=== PATIENT | male | born 1985 | race Two or more races ===

== ENCOUNTER 2025-03-29 19:56 | Emergency (ER) | payer OTHER, SELFPAY ==
[2025-03-29 19:59] VITALS: BMI 30.3
[2025-03-29 21:15] VITALS: BP 132/85; PULSE 91; RESP 18; TEMP 37.7; O2SAT 97
--- NOTE | 2025-03-29 22:03 | XR_ITS ---
Examination: Chest PA lateral 2 views Technique: PA lateral chest upright 2 views Date and time: March 29, 2025, 2206 hours INDICATION: Fever coughing beginning 4 days ago. FINDINGS: Normal heart size No lobar pneumonia. No pulmonary edema The osseous structures are intact IMPRESSION: No pneumonia identified
--- NOTE | 2025-03-29 22:08 | EDNOTE_ITS ---
Upper Respiratory Inf. RME/HPI General Chief Complaint: Flu Like Symptoms Stated Complaint: FEVER NAUSEA COUGH Time Seen by Provider: 03/29/25 21:47 Arrival date/time: 03/29/25 19:56 RME / HPI RME / HPI Narrative: 39-year-old male presents to the ED with a complaint of fever of 102 degrees, chills, cough with yellow sputum, runny nose, nasal congestion, mild sore throat, as well as nausea. He states his son was ill with similar symptoms. He has been ill for the past 5 days, states he was feeling a little better and then today it became worse. Related Data Previous Rx's ?Medication ?Instructions ?Recorded albuterol sulfate 90 mcg/actuation 2 puff inhalation Q 4H PRN 03/30/25 aerosol inhaler shortness of breath or wheez ing #8.5 grams azithromycin 250 mg tablet 250 mg PO QDAY 4 days #4 ta bs 03/30/25 prednisone 20 mg tablet 60 mg (3 x 20 mg) PO QDAY 4 days 03/30/25 #12 tabs Allergies Allergy/AdvReac Type Severity Reaction Status Date / Time No Known Allergies Allergy Verified 03/29/25 19:59 Review of Systems Review of Systems Systems Reviewed: All systems reviewed, normal except as documented Past Medical History Social History SMOKING STATUS: Never smoker ED Exam Narrative Physical exam: A&O, afebrile and non-toxic appearing, very pleasant 39-year-old male, no acute distress. Lung sounds are diminished at the bases with mild rhonchi bilaterally, RRR. TMs are without erythema, nares are very swollen. moves all extremities well. Course Course Course Narrative: COVID, influenza, rapid strep swabs obtained. Patient was given DuoNeb and Decadron. He feels a little better. XR chest reveals: No pneumonia identified per radiologist. Orders Category Date Time Status Bedside COVID-19 Antigen Test NOW Care 03/29/25 22:03 Active Bedside Influenza A&B Antigen Test NOW Care 03/29/25 22:03 Active XR chest 2V Stat Exams 03/29/25 22:03 Completed Strep A Rapid Stat Lab 03/29/25 22:30 Completed Albuterol/Ipratr Rt Raya [Duoneb Rt Raya] Med 03/29/25 22:03 Discontinued 3 ml INH X1 ONE Dexamethasone Inj [Decadron Inj] Med 03/29/25 22:03 Discontinued 10 mg PO X1 ONE Vital Signs Vital signs: Vital Signs Temperature 99.8 F 03/29/25 21:15 Pulse Rate 91 03/29/25 21:15 Respiratory Rate 18 03/29/25 21:15 Blood Pressure 132/85 H 03/29/25 21:15 Pulse Oximetry (%) 97 03/29/25 21:15 Oxygen Delivery Method Room Air 03/29/25 21:15 Upper Respiratory Infection Medications / Prescriptions Medication administrations:: Medication Administration History Discontinued Medications Albuterol/Ipratropium (Albuterol/Ipratropium (Duoneb) Rt Raya 3 Ml Nebu) 3 ml INH X1 ONE Stop: 03/29/25 22:04 Last Admin: 03/29/25 22:29 Dose: 3 ml Documented By: MASON Dexamethasone Sodium Phosphate (Dexamethasone Sod Phos Inj 10 Mg/Ml Vial) 10 mg PO X1 ONE Stop: 03/29/25 22:04 Last Admin: 03/29/25 22:16 Dose: 10 mg Documented By: Discharge Plan Plan Patient Disposition: HOME (Self Care) Discharge Disposition comment: Stable and improved Prescriptions/Referrals Prescriptions/Med Rec: New azithromycin 250 mg tablet 250 mg PO QDAY 4 Days Qty: 4 0RF Rx Instructions: start on day 2 of therapy albuterol sulfate 90 mcg/actuation HFA aerosol inhaler 2 puff inhalation Q4H PRN (Reason: shortness of breath or wheezing) Qty: 8.5 0RF prednisone 20 mg tablet 60 mg PO QDAY 4 Days Qty: 12 0RF Rx Instructions: START TAKING ON SATURDAY Referrals: No Primary/Family,Physician [Primary Care Provider] - In 1 week Problem List Clinical Impression: Lower respiratory tract infection Patient/Caregiver Discharge Instructions Education Materials: Preventing Common Respiratory ..., ED Pneumonia (Adult) Additional Instructions: COVID, influenza A/B, and strep screen swabs are negative. Take the antibiotics and steroids as prescribed and complete the course even though you may be feeling better. Use the inhaler to help with cough, wheezing, or shortness of breath. Follow-up with your primary care physician in 24 to 48 hours. Return to the ED for any new or worsening symptoms. Print Language: Persian Stand Alone Forms: Teressa Award Info., Patient Portal Info Letter PA/[employer] Supervising Physician PA/[employer] Supervising Physician: Dr Rivers
[2025-03-29] MEDS: DEXAMETHASONE SOD PHOS INJ 10 MG/ML VIAL PO (22:16)
[2025-03-29] MEDS: ALBUTEROL/IPRATROPIUM (Duoneb) RT SOL 3 ML NEBU INH (22:29)
[2025-03-29 22:31] VITALS: PULSE 94; RESP 18; O2SAT 100
[2025-03-29 23:22] LABS: Strep A Rapid Negative (Negative)
[2025-03-30] MEDS: AZITHROMYCIN 250 MG TABLET 500 MG PO (00:25)
[2025-03-30 00:26] VITALS: PULSE 78; RESP 18; TEMP 37.1; O2SAT 99
== END 2025-03-30 00:29 | disposition home or self-care (01) ==
PROVIDERS: Physician Assistant; Emergency Provider Emergency Medicine
DX: J22 Unspecified acute lower respiratory infection (principal)
CPT/HCPCS: 71046; 87400; 87651; 87811; 94640; 99283; A9270; J1100